=== PATIENT | male | born 1975 | race Caucasian/White ===

== ENCOUNTER → 2020-10-23 | Outpatient (CLI) | payer BC | LOC: NM 13:42 | DX: R10.11 Right upper quadrant pain (principal) | CPT/HCPCS: 78226; A9537 ==

== ENCOUNTER → 2020-11-27 | Outpatient (CLI) | payer BC | LOC: KOH-I 08:00 | DX: R10.32 Left lower quadrant pain (principal); K76.0 Fatty (change of) liver, not elsewhere classified; N28.9 Disorder of kidney and ureter, unspecified | CPT/HCPCS: 74150 ==

== ENCOUNTER → 2021-05-18 | Outpatient (CLI) | payer BC | LOC: KOH-I 15:31 | DX: R05 Cough (principal); R91.8 Other nonspecific abnormal finding of lung field | CPT/HCPCS: 71046 ==

== ENCOUNTER 2021-05-19 10:21 | Emergency (ER) | payer BC ==
[~2021-05-19] VITALS: Ht 175.3 cm; Wt 95.3 kg
[2021-05-19 13:01] LABS: HEMOGLOBIN 14.1 gm/dl (14.0-17.5); RED BLOOD COUNT 4.77 M/UL (4.20-5.50); WHITE BLOOD COUNT 7.8 K/UL (4.5-11.0)
[2021-05-19 13:20] LABS: BUN/CREATININE RATIO 15 (0-10)
== END 2021-05-19 14:20 | disposition home or self-care (01) ==
LOC: ER1 10:21
DX: Z23 Encounter for immunization (principal); U07.1 COVID-19
CPT/HCPCS: 71045; 80053; 85025; 99283; M0243